=== PATIENT | male | born 1940 | race Caucasian/White ===

== ENCOUNTER → 2017-02-06 | Outpatient (CLI) | payer MEDICARE, BC ==
--- NOTE | 2017-02-07 11:35 | ECHOF ---
Referral Reason:R01.1 cardiac murmur MEASUREMENTS -------- HEIGHT: 177.8 cm WEIGHT: 88.5 kg BP: 117/55 LAESV Index (A-L): 15.68 ml/m MV E George: 1.31 m/s MV DecT: 474 ms MV A George: 1.85 m/s MV E/A Ratio: 0.71 AV maxP.26 mmHg AV meanP.76 mmHg RAP: 5.00 mmHg RVSP: 11.68 mmHg FINDINGS -------- Sinus rhythm. This was a technically difficult study with suboptimal views. Overall left ventricular systolic function is normal with, an EF between 55 - 60 %. The right ventricle is normal in size and function. Normal LA size by volume 22+/-6 ml/m2. The right atrium is normal in size. Aortic valve is trileaflet and is mildly thickened. There is no evidence of aortic regurgitation. Mild aortic stenosis with peak/mean pressure gradient of 20.26mmHg / 9.76mmHg , the aortic valve area by continuity equation is 1.8cm. The mitral valve leaflets are mildly thickened. Mild mitral annular calcification present. There is trace to mild mitral regurgitation. The peak and mean MV gradients are 16.14mmHg 5.85mmHg as measured by doppler. Mild mitral stenosis. Trace tricuspid regurgitation present. There is no evidence of pulmonary hypertension. The right ventricular systolic pressure, as measured by Doppler, is 11.68mmHg. The pulmonic valve was not well visualized. The aortic root size is normal. IVC Not well visulized. The pericardium is normal. There is no pericardial effusion. CONCLUSIONS -------- 1. Sinus rhythm. 2. The peak and mean MV gradients are 16.14mmHg 5.85mmHg as measured by doppler. 3. Mild mitral stenosis. 4. Trace tricuspid regurgitation present. 5. There is no evidence of pulmonary hypertension. 6. The right ventricular systolic pressure, as measured by Doppler, is 11.68mmHg. 7. The pulmonic valve was not well visualized. 8. The aortic root size is normal. 9. IVC Not well visulized. 10. There is no pericardial effusion. 11. This was a technically difficult study with suboptimal views. 12. Overall left ventricular systolic function is normal with, an EF between 55 - 60 %. 13. Normal LA size by volume 22+/-6 ml/m2. 14. Aortic valve is trileaflet and is mildly thickened. 15. Mild aortic stenosis with peak/mean pressure gradient of 20.26mmHg / 9.76mmHg , the aortic valve area by continuity equation is 1.8cm. 16. The mitral valve leaflets are mildly thickened. 17. Mild mitral annular calcification present. 18. There is trace to mild mitral regurgitation. SUPPLY OFFICER: Omar Mast RDCS
== END | disposition home or self-care (01) ==
LOC: RADECHMAIN 16:15
PROVIDERS: ATTEND Family Medicine
DX: I08.1 Rheumatic disorders of both mitral and tricuspid valves (principal)
CPT/HCPCS: 93306

== ENCOUNTER 2017-08-22 06:34 | Day surgery (SDC) | payer MEDICARE, BC ==
[2017-08-21 09:07] VITALS: BMI 28.7
[~2017-08-22 06:34] MED LIST: LACTATED RINGERS 1,000 ML IV SCH
[2017-08-22 07:10] VITALS: RESP 18; TEMP 98.2
[2017-08-22] MEDS ORDERED: LACTATED RINGERS 1,000 ML IV ONE (07:13)
[2017-08-22 07:29] LABS: Glucose,Whole Blood 153 mg/dL (75-99)
[2017-08-22] MEDS ORDERED: LIDOCAINE 1% INJ 10MG/ML (20 ML MDV) ONE (07:34)
[2017-08-22] MEDS ORDERED: PROPOFOL 10 MG/ML 20 ML VIAL IV ONE (07:34)
--- NOTE | 2017-08-22 08:20 | P.PCN ---
Date of Procedure: 08/22/17 Procedure(s) Performed: Patient is a 76 year-old schedule for flexible sigmoidoscopy as part of follow- up of large rectal polyp that was noted on a recent colonoscopy in 07/21/2017. Patient was being evaluated for iron deficiency anemia and a colonoscopy donerevealed multiple colon polyps. The largest was in the distal rectum measuring 4-5 cm in size which was partially removed by snare polypectomy. Biopsies revealed tubular villous adenoma. He scheduled for repeat flexible sigmoidoscopy with sigmoidoscopy to ensure complete polypectomy Preoperative diagnosis; follow-up large distal rectal polyp Procedure Flexible sigmoidoscopy with snare polypectomy, submucosal injection, argon plasma coagulation Anesthesia MAC Description of procedure: The patient was brought into the endoscopy unit IV conscious sedation was administered by anesthesia and continuous monitoring. Initial digital rectal examination was normal. The Olympus CF 160 video colonoscope was then inserted into the rectum and gradually advanced to the sigmoid colon. Careful examination was performed as the scope was gradually being withdrawn. The mucosa of the sigmoid colon appeared normal in the distal rectum there was a residual 3 cm broad-based polyp identified which was close to the dentate line. initially the submucosal injection was performed using a sclerotherapy needle and approximately 10 mL of normal saline was injected at the base of the polyp. Following this snare polypectomy was performed at most of the polyp was removed. However there was small fragments of flat polyp noted in the center of the polyp could not be removed by snare polypectomy. Hence argon plasma coaguation was used and the residual polyp was coagulated. Patient tolerated the procedure well. Impression: 3 cm broad-based distal rectal polyp status post submucosal injection with saline, snare polypectomy and argon plasma coag ligation as described above. Recommendations: findings of this examination were discussed with the patient as well as his family.Will await the biopsy results. Recommended repeat flexible sigmoidoscopy in 3 months based on the biopsy results.
[2017-08-22 08:31] VITALS: BP 146/57; PULSE 60
== END 2017-08-22 08:59 | disposition home or self-care (01) ==
LOC: ORWHC2ENDO 06:34
PROVIDERS: ATTEND Internal Medicine Gastroenterology
DX: Z12.11 Encounter for screening for malignant neoplasm of colon (principal); D12.8 Benign neoplasm of rectum; I10 Essential (primary) hypertension; E78.5 Hyperlipidemia, unspecified; Z95.2 Presence of prosthetic heart valve; Z95.1 Presence of aortocoronary bypass graft; I25.2 Old myocardial infarction; E11.9 Type 2 diabetes mellitus without complications; Z79.84 Long term (current) use of oral hypoglycemic drugs; N28.9 Disorder of kidney and ureter, unspecified; Z79.02 Long term (current) use of antithrombotics/antiplatelets; Z79.899 Other long term (current) drug therapy; Z88.5 Allergy status to narcotic agent
CPT/HCPCS: 88305; 45338; 45335; J2001; J2704; 45346

== ENCOUNTER → 2017-11-19 | Day surgery (SDC) | payer MEDICARE, BC ==
[2017-11-17 11:48] VITALS: BMI 30.4
[~2017-11-19] MED LIST changes: +LIDOCAINE 1% 20 ML VIAL (10MG/ML) FOR IV START INTRADERMA PRN; +LIDOCAINE 1% INJ 10MG/ML (20 ML MDV) ONE; +MIDAZOLAM 2 MG/2 ML VIAL IV PRN; +PROPOFOL 10 MG/ML 20 ML VIAL IV ONE
[2017-11-19 07:19] VITALS: TEMP 97.8
[2017-11-19 07:23] LABS: Glucose,Whole Blood 211 mg/dL (75-99)
--- NOTE | 2017-11-19 08:02 | P.PCN ---
Date of Procedure: 11/19/17 Procedure(s) Performed: BRIEF HISTORY: Patient is a 77-year-old pleasant male, scheduled for an elective flexible sigmoidoscopy as a part of fall follow-up of large rectal polyp that was diagnosed in July 2017. He was noted to have a 5 cm polyp in the distal rectum that was partially removed in July 2017 and biopsy showed tubular villous adenoma. Had a repeat sigmoidoscopy in August 2017 and there was a 3 cm residual polyp identified which was also removed by snare polypectomy and argon plasma coag ablation was performed. He scheduled for repeat surveillance flexible cystoscopy today. PROCEDURE PERFORMED: Flexible sigmoidoscopy with attempted snare polypectomy and hot biopsy PREOPERATIVE DIAGNOSIS: Follow-up large rectal polyp. IV sedation per Anesthesia. PROCEDURE: After informed consent was obtained, the patient, was brought into the endoscopy unit. IV sedation was administered by Anesthesia under continuous monitoring. Digital rectal examination was normal. Initially the Olympus CF- 160 flexible video colonoscope was then inserted in the rectum, gradually advanced into the splenic flexure. The prep was extremely poor. Most of the sigmoid colon and descending colon could not be adequately visualized. Preparation was performed in the rectum. The site of previous polypectomy was identified without any difficulty which was located in the distal rectum. There was a 5-6 cm residual flat polyp noted at the site of polypectomy with scar tissue. Initially attempts at removing the polyp using a snare but was not successful. Subsequently using a hot biopsy forceps and the polyp was completely removed. Retroflexion was performed in the rectum and no lesions were seen. The patient tolerated the procedure well. IMPRESSION: 5-6 mm residual rectal polyp in the distal rectum status post attempted snare polypectomy followed by hot biopsy and complete polypectomy was accomplished. RECOMMENDATIONS: Findings of this examination were discussed with the patient as well as his family. He was advised to follow with the biopsy results. He can have a repeat colonoscopy in one year..
[2017-11-19 08:03] VITALS: RESP 16
[2017-11-19 08:10] VITALS: BP 158/69; PULSE 72
[2017-11-19 08:13] LABS: Glucose,Whole Blood 191 mg/dL (75-99)
== END ==
LOC: ORWHC2ENDO 06:36
PROVIDERS: ATTEND Internal Medicine Gastroenterology
DX: Z12.11 Encounter for screening for malignant neoplasm of colon (principal); D37.5 Neoplasm of uncertain behavior of rectum; I25.10 Atherosclerotic heart disease of native coronary artery without angina pectoris; I10 Essential (primary) hypertension; Z87.891 Personal history of nicotine dependence; E78.5 Hyperlipidemia, unspecified; E11.9 Type 2 diabetes mellitus without complications; Z79.84 Long term (current) use of oral hypoglycemic drugs; Z95.1 Presence of aortocoronary bypass graft; Z79.02 Long term (current) use of antithrombotics/antiplatelets; Z79.82 Long term (current) use of aspirin; Z79.899 Other long term (current) drug therapy
CPT/HCPCS: 88305; 45333; J2001; J2704; 44392

== ENCOUNTER 2018-08-27 02:02 | Inpatient (IN) | payer MEDICARE, BC ==
--- NOTE | 2018-08-27 02:23 | ED ---
General Adult HPI - General Chief complaint: Recheck/Abnormal Lab/Rx Stated complaint: Lab Recheck Time Seen by Provider: 08/27/18 02:13 Source: patient, RN notes reviewed Mode of arrival: wheelchair Limitations: no limitations - History of Present Illness Initial comments: 77-year-old male presents emergency Department with chief complaint of low hemoglobin. Patient states that he woke up a few days ago states that he felt fatigued, dizzy short of breath. Patient states that he saw his PCP who to lab work. He was notified as hemoglobin was 5. He has no history of anemia though he states he has low iron states that he's had infusions and takes oral tablets at this time. Patient does take Plavix but denies any Coumadin or any other blood thinners. Patient denies chest pain, headache, fever, chills, abdominal pain. Patient does have normal by stool secondary to iron supplement. He has had multiple polyps removed by Dr. Lewis in the past. Denies any hematuria. - Related Data Home Medications Medication Instructions Recorded Confirmed Aspirin EC [Ecotrin Low Dose] 81 mg PO HS 07/28/15 08/27/18 Atorvastatin [Lipitor] 40 mg PO HS 07/28/15 08/27/18 Cinnamon Bark [Cinnamon] 1,000 mg PO BID 07/28/15 08/27/18 Calera-3 Fatty Acids/Fish Oil [Fish 1 cap PO BID 07/28/15 08/27/18 Oil 1,000 mg Softgel] glipiZIDE [Glucotrol] 10 mg PO AC-BRKFST 07/28/15 08/27/18 Allopurinol [Zyloprim] 100 mg PO QAM 11/13/15 08/27/18 amLODIPine [Norvasc] 2.5 mg PO DAILY 01/08/16 08/27/18 Cholecalciferol (Vitamin D3) 2,000 unit PO BID 02/25/17 08/27/18 [Vitamin D3] Carvedilol [Coreg] 6.25 mg PO BID 08/21/17 08/27/18 Ferrous Sulfate [Feosol] 130 mg PO DAILY 11/17/17 08/27/18 Acetaminophen Tab [Tylenol Tab] 325 mg PO Q6H PRN 08/27/18 08/27/18 Sennosides/Docusate Sodium 1 tab PO DAILY 08/27/18 08/27/18 [Senna-S Laxative Tablet] Sodium Bicarbonate Tab 2 tab PO BID 08/27/18 08/27/18 Sodium Polystyrene Sulfonate 15 g PO DAILY 08/27/18 08/27/18 [Kayexalate] glyBURIDE [Diabeta] 2.5 mg PO DAILY PRN 08/27/18 08/27/18 metFORMIN HCL ER [Glucophage Xr] 500 mg PO DAILY 08/27/18 08/27/18 sitaGLIPtin [Januvia] 50 mg PO DAILY 08/27/18 08/27/18 Previous Rx's Medication Instructions Recorded Clopidogrel [Plavix] 75 mg PO DAILY #90 tab 01/11/16 Allergies Allergy/AdvReac Type Severity Reaction Status Date / Time codeine Allergy Rash/Hives Verified 08/27/18 02:40 Review of Systems ROS Statement: Those systems with pertinent positive or pertinent negative responses have been documented in the HPI. ROS Other: All systems not noted in ROS Statement are negative. 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 cataract surgery-porfirio, AORTIC RESECTION FOR ANEURYSM. aortogram . RIGHT FOOT AMPUTATION , FLEXIBLE SIGMOIDOSCOPY 08/2017 Past Anesthesia/Blood Transfusion Reactions: No Reported Reaction Past Psychological History: Depression Smoking Status: Former smoker - Past Family History Mother Family Medical History: Cancer Father Additional Family Medical History / Comment(s): alzheimers Sister(s) Family Medical History: Cancer General Exam Limitations: no limitations General appearance: alert, in no apparent distress, other (appears pale) Head exam: Present: atraumatic, normocephalic, normal inspection Eye exam: Present: PERRL, EOMI. Absent: normal appearance (pale), scleral icterus, conjunctival injection, periorbital swelling ENT exam: Present: normal exam, normal oropharynx, mucous membranes moist Neck exam: Present: normal inspection. Absent: tenderness, meningismus, lymphadenopathy Respiratory exam: Present: normal lung sounds bilaterally. Absent: respiratory distress, wheezes, rales, rhonchi, stridor Cardiovascular Exam: Present: regular rate, normal rhythm, normal heart sounds. Absent: systolic murmur, diastolic murmur, rubs, gallop, clicks GI/Abdominal exam: Present: soft, normal bowel sounds. Absent: distended, tenderness, guarding, rebound, rigid Skin exam: Present: warm, dry, intact, normal color. Absent: rash Course Vital Signs 08/27/18 08/27/18 02:07 02:40 Temperature 98.1 F Pulse Rate 79 68 Respiratory 20 19 Rate Blood Pressure 81/49 102/72 O2 Sat by Pulse 96 99 Oximetry Medical Decision Making - Medical Decision Making 77-year-old male presented for low hemoglobin. Patient's hemoglobin is 5.8. 2 units of blood were ordered. Patient is Hemoccult positive. Patient was given Protonix. Patient will be admitted for evaluation by GI. - Lab Data Result diagrams: 08/27/18 02:15 08/27/18 02:15 Lab Results 08/27/18 08/27/18 08/27/18 Range/Units 02:15 02:15 02:15 WBC 7.4 (3.8-10.6) k/uL RBC 1.93 L (4.30-5.90) m/uL Hgb 5.8 L* (13.0-17.5) gm/dL Hct 17.5 L* (39.0-53.0) % MCV 90.6 (80.0-100.0) fL MCH 29.8 (25.0-35.0) pg MCHC 32.9 (31.0-37.0) g/dL RDW 21.1 H (11.5-15.5) % Plt Count 173 (150-450) k/uL Neutrophils % 69 % Lymphocytes % 18 % Monocytes % 7 % Eosinophils % 4 % Basophils % 1 % Neutrophils # 5.1 (1.3-7.7) k/uL Lymphocytes # 1.3 (1.0-4.8) k/uL Monocytes # 0.5 (0-1.0) k/uL Eosinophils # 0.3 (0-0.7) k/uL Basophils # 0.1 (0-0.2) k/uL Anisocytosis Moderate Macrocytosis Slight PT 10.1 (9.0-12.0) sec INR 0.9 (<1.2) APTT 18.4 L (22.0-30.0) sec Sodium 141 (137-145) mmol/L Potassium 4.2 (3.5-5.1) mmol/L Chloride 102 (98-107) mmol/L Carbon Dioxide 26 (22-30) mmol/L Anion Gap 13 mmol/L BUN 58 H (9-20) mg/dL Creatinine 1.98 H (0.66-1.25) mg/dL Est GFR (CKD-EPI)AfAm 37 (>60 ml/min/1.73 sqM) Est GFR (CKD-EPI)NonAf 32 (>60 ml/min/1.73 sqM) Glucose 224 H (74-99) mg/dL Calcium 10.3 H (8.4-10.2) mg/dL Total Bilirubin 0.3 (0.2-1.3) mg/dL AST 19 (17-59) U/L ALT 18 L (21-72) U/L Alkaline Phosphatase 65 (38-126) U/L Total Protein 6.1 L (6.3-8.2) g/dL Albumin 3.8 (3.5-5.0) g/dL Lipase 119 (23-300) U/L Urine Color Urine Appearance (Clear) Urine pH (5.0-8.0) Ur Specific [place] (1.001-1.035) Urine Protein (Negative) Urine Glucose (UA) (Negative) Urine Ketones (Negative) Urine Blood (Negative) Urine Nitrite (Negative) Urine Bilirubin (Negative) Urine Urobilinogen (<2.0) mg/dL Ur Leukocyte Esterase (Negative) Urine RBC (0-5) /hpf Urine WBC (0-5) /hpf Ur Squamous Epith Cells (0-4) /hpf Urine Mucus (None) /hpf Stool Occult Blood (Negative) 08/27/18 08/27/18 Range/Units 02:52 02:52 WBC (3.8-10.6) k/uL RBC (4.30-5.90) m/uL Hgb (13.0-17.5) gm/dL Hct (39.0-53.0) % MCV (80.0-100.0) fL MCH (25.0-35.0) pg MCHC (31.0-37.0) g/dL RDW (11.5-15.5) % Plt Count (150-450) k/uL Neutrophils % % Lymphocytes % % Monocytes % % Eosinophils % % Basophils % % Neutrophils # (1.3-7.7) k/uL Lymphocytes # (1.0-4.8) k/uL Monocytes # (0-1.0) k/uL Eosinophils # (0-0.7) k/uL Basophils # (0-0.2) k/uL Anisocytosis Macrocytosis PT (9.0-12.0) sec INR (<1.2) APTT (22.0-30.0) sec Sodium (137-145) mmol/L Potassium (3.5-5.1) mmol/L Chloride (98-107) mmol/L Carbon Dioxide (22-30) mmol/L Anion Gap mmol/L BUN (9-20) mg/dL Creatinine (0.66-1.25) mg/dL Est GFR (CKD-EPI)AfAm (>60 ml/min/1.73 sqM) Est GFR (CKD-EPI)NonAf (>60 ml/min/1.73 sqM) Glucose (74-99) mg/dL Calcium (8.4-10.2) mg/dL Total Bilirubin (0.2-1.3) mg/dL AST (17-59) U/L ALT (21-72) U/L Alkaline Phosphatase (38-126) U/L Total Protein (6.3-8.2) g/dL Albumin (3.5-5.0) g/dL Lipase (23-300) U/L Urine Color Yellow Urine Appearance Clear (Clear) Urine pH 6.0 (5.0-8.0) Ur Specific [place] 1.009 (1.001-1.035) Urine Protein Negative (Negative) Urine Glucose (UA) 4+ H (Negative) Urine Ketones Negative (Negative) Urine Blood Small H (Negative) Urine Nitrite Negative (Negative) Urine Bilirubin Negative (Negative) Urine Urobilinogen <2.0 (<2.0) mg/dL Ur Leukocyte Esterase Negative (Negative) Urine RBC <1 (0-5) /hpf Urine WBC 3 (0-5) /hpf Ur Squamous Epith Cells 1 (0-4) /hpf Urine Mucus Rare H (None) /hpf Stool Occult Blood Positive (Negative) Disposition Clinical Impression: Melena, Anemia, Chronic renal failure Disposition: ADMITTED IP TO THIS HOSP Condition: Fair Referrals: Norm Stock MD [Primary Care Provider] - 1-2 days
[2018-08-27 02:41] LABS: Anisocytosis Moderate; Basophils # (A) 0.1 k/uL (0-0.2); Basophils % (A) 1 %; Eosinophils # (A) 0.3 k/uL (0-0.7); Eosinophils % (A) 4 %; Lymphocytes # (A) 1.3 k/uL (1.0-4.8); Lymphocytes % (A) 18 %; MCH 29.8 pg (25.0-35.0); MCHC 32.9 g/dL (31.0-37.0); MCV 90.6 fL (80.0-100.0); Macrocytosis Slight; Mean Platelet Volume 8.2; Monocytes # (A) 0.5 k/uL (0-1.0); Monocytes % (A) 7 %; Neutrophils # (A) 5.1 k/uL (1.3-7.7); Neutrophils % (A) 69 %; Platelet Count 173 k/uL (150-450); RBC 1.93 m/uL (4.30-5.90); RDW 21.1 % (11.5-15.5)
[2018-08-27 02:47] LABS: Albumin 3.8 g/dL (3.5-5.0); Calcium 10.3 mg/dL (8.4-10.2); Potassium 4.2 mmol/L (3.5-5.1); Total Bilirubin 0.3 mg/dL (0.2-1.3); Total Protein 6.1 g/dL (6.3-8.2)
[2018-08-27 02:50] LABS: HCT 17.5 % (39.0-53.0); HGB 5.8 gm/dL (13.0-17.5)
[2018-08-27] MEDS ORDERED: SODIUM CHLORIDE 0.9% 1,000 ML IV ONE (02:51)
[2018-08-27 02:52] LABS: INR 0.9 (<1.2); Prothrombin Time 10.1 sec (9.0-12.0)
[2018-08-27 02:58] LABS: Partial Thromboplastin Time 18.4 sec (22.0-30.0)
[2018-08-27 03:16] LABS: Mucus,Urine Rare /hpf; RBC,Urine <1 /hpf (0-5); Squamous Epithelial Cell,Urine 1 /hpf (0-4); WBC,Urine 3 /hpf (0-5)
[2018-08-27 03:18] LABS: Appearance,Urine Clear (Clear); Color,Urine Yellow; Glucose,Urine (UA) 4+ (Negative); Protein,Urine Negative (Negative); Specific Gravity,Urine 1.009 (1.001-1.035)
[2018-08-27 03:19] LABS: Bilirubin,Urine Negative (Negative); Blood,Urine Small (Negative); Ketones,Urine Negative (Negative); Leukocyte Esterase,Urine Negative (Negative); Nitrite,Urine Negative (Negative); Urobilinogen,Urine <2.0 mg/dL (<2.0)
[2018-08-27] MEDS ORDERED: PANTOPRAZOLE 40 MG/10 ML VIAL IVP STA (03:25)
[2018-08-27] MEDS ORDERED: ACETAMINOPHEN TAB 325 MG TAB PO PRN ×2 (03:26→10:41)
[2018-08-27 05:51] LABS: Glucose,Whole Blood 158 mg/dL (75-99)
[2018-08-27 09:43] LABS: Anisocytosis Slight; Basophils % (A) 0 %; Eosinophils # (A) 0.2 k/uL (0-0.7); Eosinophils % (A) 4 %; HCT 22.7 % (39.0-53.0); HGB 7.2 gm/dL (13.0-17.5); Lymphocytes # (A) 1.3 k/uL (1.0-4.8); Lymphocytes % (A) 21 %; MCH 29.3 pg (25.0-35.0); MCHC 31.7 g/dL (31.0-37.0); MCV 92.3 fL (80.0-100.0); Mean Platelet Volume 8.8; Monocytes # (A) 0.4 k/uL (0-1.0); Monocytes % (A) 7 %; Neutrophils # (A) 3.9 k/uL (1.3-7.7); Neutrophils % (A) 66 %; Platelet Count 126 k/uL (150-450); RBC 2.45 m/uL (4.30-5.90); RDW 18.4 % (11.5-15.5); WBC 5.9 k/uL (3.8-10.6)
[2018-08-27 10:11] LABS: Potassium 4.2 mmol/L (3.5-5.1)
[2018-08-27] MEDS ORDERED: NALOXONE 0.4 MG/ML 1 ML VIAL IV PRN (10:24)
[2018-08-27] MEDS ORDERED: ONDANSETRON 4 MG/2 ML VIAL IVP PRN (10:24)
[2018-08-27 10:40] LABS: Reticulocyte % 5.5 % (0.5-2.0)
--- NOTE | 2018-08-27 10:44 | P.HPIM ---
History of Present Illness H&P Date: 08/27/18 Chief Complaint: weakness Patient is a 77-year-old male past medical history of hypertension, dyslipidemia, diabetes mellitus type 2, and atherosclerotic sclerotic coronary artery disease status post CABG with AVR replacement who presented at the direction of Dr. Stock for low hemoglobin. Patient had initially seen Dr. Stock in the office on 08/26 and underwent blood work. He was called in the middle the night stating that he was anemic and told to come to the ER. On presentation to the ER here he underwent an extensive evaluation. His hemoglobin was found to be 5.8. His creatinine was slightly elevated but at his baseline. Vital signs were within normal limits. He was ordered 2 units of packed red blood cells and admitted to the general medical floor. He had a positive stool occult blood to take oral iron at home. Patient seen and examined at bedside. He states the last 3 days he felt dizzy on standing with shortness of breath with exertion. He has felt overall weak. He denies any overt chest pain and shortness of breath resolved when he sits down. He denies any abdominal pain nausea, vomiting, diarrhea, or constipation. He has chronic dark stools from his iron therapy which he states are unchanged. He denies seeing any blood in his stool. He has a history of rectal polyps and underwent sigmoidoscopy last year with Dr. Lewis. Follow with her in one year which is coming up in several months. He denies any history of colon cancer. He states he has never had anything like this prior. He takes aspirin and Plavix at baseline but no anticoagulation. He denies any recent cough, cold, fever, flu, numbness, tingling, changes in vision. He is taking casodex. Recent changes in medication were trial of what he believes is Januvia and thought he didn't tolerate the medication was taken off of it by Dr. Stock. Review of Systems Pertinent positives and negatives as discussed in HPI, a complete review of systems was performed and all other systems are negative. Past Medical History Past Medical History: Cancer, Diabetes Mellitus, Hearing Disorder / Deafness, Hyperlipidemia, Hypertension, Myocardial Infarction ([place]), Prostate Disorder, Renal Disease, Vascular Disorder Additional Past Medical History / Comment(s): gout, NEUROPATHY, constipation, chronic kidney disease, AORTIC VALVE WAS REPLACED, PROSTATE CANCER-radiation only no chemo. 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 cataract surgery-porfirio, AORTIC RESECTION FOR ANEURYSM. aortogram . FLEXIBLE SIGMOIDOSCOPY 08/2017 Past Anesthesia/Blood Transfusion Reactions: No Reported Reaction Past Psychological History: Depression Smoking Status: Former smoker Past Alcohol Use History: Rare Additional Past Alcohol Use History / Comment(s): QUIT SMOKING IN 2008, SMOKED 1PPD FROM 1957 Past Drug Use History: None Reported Additional History: Lives at home with his . He typically uses a cane but sometimes uses a walker. He Is retired. - Past Family History Mother Family Medical History: Cancer Additional Family Medical History / Comment(s): cancer- unknow type. Denies family hx of colon caner Father Additional Family Medical History / Comment(s): alzheimers Sister(s) Family Medical History: Cancer Medications and Allergies Home Medications Medication Instructions Recorded Confirmed Type Aspirin EC [Ecotrin Low Dose] 81 mg PO HS 07/28/15 08/27/18 History Atorvastatin [Lipitor] 40 mg PO HS 07/28/15 08/27/18 History glipiZIDE [Glucotrol] 5 mg PO AC-BRKFST 07/28/15 08/27/18 History Allopurinol [Zyloprim] 100 mg PO DAILY 11/13/15 08/27/18 History amLODIPine [Norvasc] 2.5 mg PO DAILY 01/08/16 08/27/18 History Clopidogrel [Plavix] 75 mg PO DAILY #90 tab 01/11/16 08/27/18 Rx Acetaminophen Tab [Tylenol Tab] 325 mg PO Q6H PRN 08/27/18 08/27/18 History Bicalutamide 50 mg PO DAILY 08/27/18 08/27/18 History Sodium Bicarbonate Tab 1,300 tab PO BID 08/27/18 08/27/18 History glyBURIDE [Diabeta] 2.5 mg PO QID PRN 08/27/18 08/27/18 History metFORMIN HCL ER [Glucophage Xr] 500 mg PO DAILY 08/27/18 08/27/18 History sitaGLIPtin [Januvia] 50 mg PO DAILY 08/27/18 08/27/18 History Allergies Allergy/AdvReac Type Severity Reaction Status Date / Time codeine Allergy Rash/Hives Verified 08/27/18 09:43 Physical Exam Osteopathic Statement: *. No significant issues noted on an osteopathic structural exam other than those noted in the History and Physical/Consult. Vitals: Vital Signs Temp Pulse Pulse Resp BP BP Pulse Ox 08/27/18 08:13 98.0 F 65 16 134/68 94 L 08/27/18 08:11 98.0 F 65 16 134/68 93 L 08/27/18 07:46 98.3 F 64 15 134/64 96 08/27/18 06:47 73 08/27/18 06:42 98.3 F 65 16 123/57 97 08/27/18 06:12 98.4 F 66 15 124/67 95 08/27/18 06:02 97.8 F 94 16 111/60 96 08/27/18 05:38 98.1 F 71 15 116/54 98 08/27/18 05:34 98.1 F 71 15 116/54 98 08/27/18 05:07 97.8 F 73 18 133/60 99 08/27/18 04:52 98.5 F 67 17 129/65 100 08/27/18 04:37 98.7 F 70 17 113/58 99 08/27/18 04:10 98.7 F 68 17 121/60 100 08/27/18 04:00 98.0 F 68 18 116/60 08/27/18 03:42 68 18 107/58 100 08/27/18 02:40 68 19 102/72 99 08/27/18 02:07 98.1 F 79 20 81/49 96 Intake and Output 08/26/18 08/27/18 08/27/18 22:59 06:59 14:59 Intake Total 310 310 Balance 310 310 Intake: Blood Product 310 310 Rc As-1 Unit 0 310 [id number] Rc Pheresis As-3 Unit 310 [id number] Other: Voiding Method Toilet Urinal # Voids 1 1 Weight 93.44 kg General: non toxic, mild distress, appears at stated age, normal weight Derm: Pale appearing, no unusual rashes/lesions no unusual ecchymoses, warm, dry Head: atraumatic, normocephalic, symmetric Eyes: EOMI, no lid lag, anicteric sclera, pupils equal round reactive to light ENT: Nose and ears atraumatic, no thrush, no pharyngeal erythema Neck: No thyromegaly, no cervical lymphadenopathy, trachea midline, supple Mouth: no lip lesion, mucus membranes moist Cardiovascular: S1S2 reg, no murmur, positive posterior tibial pulse LLE , no edema, capillary refill less than 2 seconds Lungs: CTA bilateral, no rhonchi, no rales , no accessory muscle use Abdominal: soft, nontender to palpation, no guarding, no appreciable organomegaly, normal bowel sounds Ext: Right BKA, Left left toe amputation, no gross muscle atrophy, muscle strength 5 out of 5 in all 4 extremities grossly, no contractures, Neuro: CN II-XI grossly intact, light touch intact all 4 extremities, finger to nose within normal limits, Psych: Alert, oriented, appropriate affect Results CBC & Chem 7: 08/27/18 09:13 08/27/18 09:13 Labs: Abnormal Lab Results - Last 24 Hours (Table) 08/27/18 08/27/18 08/27/18 Range/Units 02:15 02:15 02:15 RBC 1.93 L (4.30-5.90) m/uL Hgb 5.8 L* (13.0-17.5) gm/dL Hct 17.5 L* (39.0-53.0) % RDW 21.1 H (11.5-15.5) % Plt Count (150-450) k/uL APTT (22.0-30.0) sec Chloride (98-107) mmol/L BUN 58 H (9-20) mg/dL Creatinine 1.98 H (0.66-1.25) mg/dL Glucose 224 H (74-99) mg/dL POC Glucose (mg/dL) (75-99) mg/dL Calcium 10.3 H (8.4-10.2) mg/dL ALT 18 L (21-72) U/L Total Protein 6.1 L (6.3-8.2) g/dL Urine Glucose (UA) (Negative) Urine Blood (Negative) Urine Mucus (None) /hpf Crossmatch See Detail 08/27/18 08/27/18 08/27/18 Range/Units 02:15 02:52 05:47 RBC (4.30-5.90) m/uL Hgb (13.0-17.5) gm/dL Hct (39.0-53.0) % RDW (11.5-15.5) % Plt Count (150-450) k/uL APTT 18.4 L (22.0-30.0) sec Chloride (98-107) mmol/L BUN (9-20) mg/dL Creatinine (0.66-1.25) mg/dL Glucose (74-99) mg/dL POC Glucose (mg/dL) 158 H (75-99) mg/dL Calcium (8.4-10.2) mg/dL ALT (21-72) U/L Total Protein (6.3-8.2) g/dL Urine Glucose (UA) 4+ H (Negative) Urine Blood Small H (Negative) Urine Mucus Rare H (None) /hpf Crossmatch 08/27/18 08/27/18 Range/Units 09:13 09:13 RBC 2.45 L (4.30-5.90) m/uL Hgb 7.2 L (13.0-17.5) gm/dL Hct 22.7 L (39.0-53.0) % RDW 18.4 H (11.5-15.5) % Plt Count 126 L (150-450) k/uL APTT (22.0-30.0) sec Chloride 108 H (98-107) mmol/L BUN 48 H (9-20) mg/dL Creatinine 1.90 H (0.66-1.25) mg/dL Glucose 137 H (74-99) mg/dL POC Glucose (mg/dL) (75-99) mg/dL Calcium (8.4-10.2) mg/dL ALT (21-72) U/L Total Protein (6.3-8.2) g/dL Urine Glucose (UA) (Negative) Urine Blood (Negative) Urine Mucus (None) /hpf Crossmatch Thrombosis Risk Factor Assmnt - DVT/VTE Prophylaxis DVT/VTE Prophylaxis: Low risk, early ambulation encouraged - Choose All That Apply Any of the Below Risk Factors Present?: Yes Each Factor Represents 1 point: Abnormal pulmonary function (COPD), Obesity ( BMI >25) Each Risk Factor Represents 3 Points: Age 75 years or older Other congenital or acquired thrombophilia - If yes, enter type in comment: No Thrombosis Risk Factor Assessment Total Risk Factor Score: 5 Thrombosis Risk Factor Assessment Level: High Risk Assessment and Plan Assessment: Symptomatic anemia -Serial CBCs -Status post 2 units of packed red blood cells -GI consultation, positive fecal occult blood likely due to chronic oral iron therapy -Add iron studies, reticulocyte count 2 blood before transfusion -We will check echocardiogram to look for anemia secondary to aortic stenosis -Hold aspirin and Plavix Thrombocytopenia -Was not present on admission -We will repeat with next CBC -Check haptoglobin and LDH CKD stage III -Creatinine appears at baseline of 1.6-1.8 -Avoid additional nephrotoxic agents -Follow BMP -Continue home bicarb Diabetes mellitus type 2, controlled with oral medications -Insulin sliding scale -Follow blood sugars -Check hemoglobin A1c -Hold oral medications Hypertension, controlled -Continue with Norvasc Dyslipidemia -Hold statin therapy in light of possible bleeding The patient is admitted with an anticipated greater than 2 midnight stay for evaluation of symptomatic anemia. Surrogate decision-maker: Apple CODE STATUS: Full DVT prophylaxis: SCDs due to bleeding risk Discussed with: Patient, nursing Anticipated discharge date: 2-[address]: Home A total of 55 minutes was spent on the care of this complex patient more than 50 % of the time was spent in counseling and care coordination.
[2018-08-27 10:56] LABS: Total Bilirubin 0.4 mg/dL (0.2-1.3)
[2018-08-27] MEDS: SODIUM CHLORIDE 0.9% 1,000 ML IV SCH ×2 (12:04→20:18)
[2018-08-27 12:14] LABS: Glucose,Whole Blood 148 mg/dL (75-99)
[2018-08-27] MEDS: INSULIN ASPART (NovoLOG) 100 UNIT/ML VIAL SQ SCH ×3 (12:16→20:18)
[2018-08-27 16:21] LABS: WBC 7.4 k/uL (3.8-10.6)
[2018-08-27 16:21] LABS: Iron Saturation 16.62 (15.00-50.00)
[2018-08-27 16:38] LABS: Anisocytosis Slight; Basophils % (A) 1 %; Eosinophils # (A) 0.3 k/uL (0-0.7); Eosinophils % (A) 4 %; HCT 23.5 % (39.0-53.0); HGB 7.6 gm/dL (13.0-17.5); Hypochromasia Slight; Lymphocytes # (A) 1.1 k/uL (1.0-4.8); Lymphocytes % (A) 17 %; MCHC 32.3 g/dL (31.0-37.0); Macrocytosis Slight; Mean Platelet Volume 8.8; Monocytes # (A) 0.4 k/uL (0-1.0); Monocytes % (A) 7 %; Neutrophils # (A) 4.4 k/uL (1.3-7.7); Neutrophils % (A) 70 %; Platelet Count 132 k/uL (150-450); RBC 2.53 m/uL (4.30-5.90); RDW 18.8 % (11.5-15.5); WBC 6.3 k/uL (3.8-10.6)
[2018-08-27 17:40] LABS: Glucose,Whole Blood 172 mg/dL (75-99)
[2018-08-27 20:18] LABS: Glucose,Whole Blood 169 mg/dL (75-99)
[2018-08-27] MEDS: PANTOPRAZOLE 40 MG/10 ML VIAL IVP SCH (20:43)
[2018-08-27] MEDS: SODIUM BICARBONATE TAB 650 MG TAB PO SCH (20:43)
[2018-08-27 22:46] LABS: Hemoglobin A1C 6.4 % (4.0-6.0)
[2018-08-28 01:00] LABS: Anisocytosis Slight; Basophils % (A) 0 %; Eosinophils # (A) 0.3 k/uL (0-0.7); Eosinophils % (A) 5 %; HCT 24.6 % (39.0-53.0); HGB 8.3 gm/dL (13.0-17.5); Hypochromasia Slight; Lymphocytes % (A) 15 %; MCHC 33.6 g/dL (31.0-37.0); MCV 92.2 fL (80.0-100.0); Macrocytosis Slight; Mean Platelet Volume 8.2; Monocytes # (A) 0.6 k/uL (0-1.0); Monocytes % (A) 8 %; Neutrophils # (A) 4.6 k/uL (1.3-7.7); Neutrophils % (A) 70 %; Platelet Count 138 k/uL (150-450); RBC 2.67 m/uL (4.30-5.90); RDW 19.2 % (11.5-15.5); WBC 6.6 k/uL (3.8-10.6)
[2018-08-28] MEDS: SODIUM CHLORIDE 0.9% 1,000 ML IV SCH ×3 (04:23→16:04)
--- NOTE | 2018-08-28 05:54 | P.CONS ---
History of Present Illness - Reason for Consult Consult date: 08/27/18 Anemia Requesting physician: Elvie Avina - Chief Complaint Anemia - History of Present Illness 77-year-old male with a medical history significant for hypertension, hyperlipidemia, type 2 diabetes mellitus and coronary artery disease status post CABG who presented for outpatient evaluation of abnormal labs. The patient had routine outpatient labs which were significant for a hemoglobin of 5.8. The patient has also been complaining of dizziness, weakness and shortness of breath worse with exertion. He is on Plavix and aspirin at baseline. The patient does report dark bowel movements and denies any gross red blood per rectum. On presentation to the hospital the patient was found to have a hemoglobin which improved from 5.8-7.2 and stool testing was positive for occult blood. He's undergone extensive endoscopic evaluation in the past with EGD and colonoscopy in 07/2017 at which time multiple polyps were removed and the patient was found to have a large rectal polyp. The rectal vault was subsequently treated with resection on follow-up flexible sigmoidoscopy in 2017 and 11/2017. Review of Systems REVIEW OF SYSTEMS: CONSTITUTIONAL: Denies any fevers, chills, weight change but he does report fatigue. CARDIOVASCULAR: Denies any chest pain, palpitations high or low blood pressures RESPIRATORY: Denies any hemoptysis or cough, but does report shortness of breath worse on exertion. GENITOURINARY: No dysuria or hematuria. MUSCULOSKELETAL: No weakness reported. SKIN: Denies any new rashes or lesions, jaundice or pallor. PSYCHIATRIC: Denies any depression or anxiety. NEUROLOGY: Denies headache, denies any new focal deficits, but does report dizziness. EARS/NOSE/THROAT: No recent hearing change, congestion, nasal discharge or sore throat. EYES: No pain in eyes, discharge or change in vision. GASTROINTESTINAL: As per HPI. Past Medical History Past Medical History: Cancer, Diabetes Mellitus, Hearing Disorder / Deafness, Hyperlipidemia, Hypertension, Myocardial Infarction ([place]), Prostate Disorder, Renal Disease, Vascular Disorder Additional Past Medical History / Comment(s): gout, NEUROPATHY, constipation, chronic kidney disease, AORTIC VALVE WAS REPLACED, PROSTATE CANCER-radiation only no chemo. 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 cataract surgery-porfirio, AORTIC RESECTION FOR ANEURYSM. aortogram . FLEXIBLE SIGMOIDOSCOPY 08/2017 Past Anesthesia/Blood Transfusion Reactions: No Reported Reaction Past Psychological History: Depression Smoking Status: Former smoker Past Alcohol Use History: Rare Additional Past Alcohol Use History / Comment(s): QUIT SMOKING IN 2008, SMOKED 1PPD FROM 1957 Past Drug Use History: None Reported - Past Family History Mother Family Medical History: Cancer Additional Family Medical History / Comment(s): cancer- unknow type. Denies family hx of colon caner Father Additional Family Medical History / Comment(s): alzheimers Sister(s) Family Medical History: Cancer Medications and Allergies Home Medications Medication Instructions Recorded Confirmed Type Aspirin EC [Ecotrin Low Dose] 81 mg PO HS 07/28/15 08/27/18 History Atorvastatin [Lipitor] 40 mg PO HS 07/28/15 08/27/18 History glipiZIDE [Glucotrol] 5 mg PO AC-BRKFST 07/28/15 08/27/18 History Allopurinol [Zyloprim] 100 mg PO DAILY 11/13/15 08/27/18 History amLODIPine [Norvasc] 2.5 mg PO DAILY 01/08/16 08/27/18 History Clopidogrel [Plavix] 75 mg PO DAILY #90 tab 01/11/16 08/27/18 Rx Acetaminophen Tab [Tylenol Tab] 325 mg PO Q6H PRN 08/27/18 08/27/18 History Bicalutamide 50 mg PO DAILY 08/27/18 08/27/18 History Sodium Bicarbonate Tab 1,300 tab PO BID 08/27/18 08/27/18 History glyBURIDE [Diabeta] 2.5 mg PO QID PRN 08/27/18 08/27/18 History metFORMIN HCL ER [Glucophage Xr] 500 mg PO DAILY 08/27/18 08/27/18 History sitaGLIPtin [Januvia] 50 mg PO DAILY 08/27/18 08/27/18 History Allergies Allergy/AdvReac Type Severity Reaction Status Date / Time codeine Allergy Rash/Hives Verified 08/27/18 09:43 Physical Exam Vitals: Vital Signs Temp Pulse Pulse Resp BP BP Pulse Ox 08/27/18 20:00 16 08/27/18 19:42 98.3 F 65 16 116/54 91 L 08/27/18 16:57 62 08/27/18 16:00 97.3 F L 62 16 96/40 93 L 08/27/18 12:00 98.3 F 62 17 107/52 95 08/27/18 10:43 64 15 08/27/18 08:13 98.0 F 65 16 134/68 94 L 08/27/18 08:11 98.0 F 65 16 134/68 93 L 08/27/18 07:46 98.3 F 64 15 134/64 96 08/27/18 06:47 73 08/27/18 06:42 98.3 F 65 16 123/57 97 08/27/18 06:12 98.4 F 66 15 124/67 95 08/27/18 06:02 97.8 F 94 16 111/60 96 08/27/18 05:38 98.1 F 71 15 116/54 98 08/27/18 05:34 98.1 F 71 15 116/54 98 08/27/18 05:07 97.8 F 73 18 133/60 99 08/27/18 04:52 98.5 F 67 17 129/65 100 08/27/18 04:37 98.7 F 70 17 113/58 99 08/27/18 04:10 98.7 F 68 17 121/60 100 08/27/18 04:00 98.0 F 68 18 116/60 08/27/18 03:42 68 18 107/58 100 08/27/18 02:40 68 19 102/72 99 08/27/18 02:07 98.1 F 79 20 81/49 96 Intake and Output 08/27/18 08/27/18 08/27/18 06:59 14:59 22:59 Intake Total 310 310 Balance 310 310 Intake: Blood Product 310 310 Rc As-1 Unit 0 310 [id number] Rc Pheresis As-3 Unit 310 [id number] Other: Voiding Method Toilet Toilet Toilet Urinal Urinal Urinal # Voids 1 1 # Bowel Movements 0 Weight 93.44 kg On physical examination, patient appears comfortable in no apparent distress. HEAD: Normocephalic, atraumatic. EYES: No scleral icterus. No conjunctival injection. MOUTH: No lesions, tongue midline. NECK: Trachea midline, no gross abnormalities. CHEST: Decreased air entry in all lung colón. HEART: S1-S2 appreciated. ABDOMEN: Soft, obese. Bowel sounds are positive. No organomegaly. No guarding or rigidity. EXTREMITIES: No pedal edema, patient does have a prosthesis. SKIN: No rashes, no jaundice. NEUROLOGIC: Alert and oriented x3. No focal deficits. Results CBC & Chem 7: 08/28/18 00:53 08/27/18 09:13 Labs: Abnormal Lab Results - Last 24 Hours (Table) 08/27/18 08/27/18 08/27/18 Range/Units 02:15 02:15 02:15 RBC 1.93 L (4.30-5.90) m/uL Hgb 5.8 L* (13.0-17.5) gm/dL Hct 17.5 L* (39.0-53.0) % RDW 21.1 H (11.5-15.5) % Plt Count (150-450) k/uL Retic Count (0.5-2.0) % APTT (22.0-30.0) sec Chloride (98-107) mmol/L BUN 58 H (9-20) mg/dL Creatinine 1.98 H (0.66-1.25) mg/dL Glucose 224 H (74-99) mg/dL POC Glucose (mg/dL) (75-99) mg/dL Calcium 10.3 H (8.4-10.2) mg/dL Iron (65-175) ug/dL ALT 18 L (21-72) U/L Total Protein 6.1 L (6.3-8.2) g/dL Urine Glucose (UA) (Negative) Urine Blood (Negative) Urine Mucus (None) /hpf Crossmatch See Detail 08/27/18 08/27/18 08/27/18 Range/Units 02:15 02:52 05:47 RBC (4.30-5.90) m/uL Hgb (13.0-17.5) gm/dL Hct (39.0-53.0) % RDW (11.5-15.5) % Plt Count (150-450) k/uL Retic Count (0.5-2.0) % APTT 18.4 L (22.0-30.0) sec Chloride (98-107) mmol/L BUN (9-20) mg/dL Creatinine (0.66-1.25) mg/dL Glucose (74-99) mg/dL POC Glucose (mg/dL) 158 H (75-99) mg/dL Calcium (8.4-10.2) mg/dL Iron (65-175) ug/dL ALT (21-72) U/L Total Protein (6.3-8.2) g/dL Urine Glucose (UA) 4+ H (Negative) Urine Blood Small H (Negative) Urine Mucus Rare H (None) /hpf Crossmatch 08/27/18 08/27/18 08/27/18 Range/Units 09:13 09:13 09:13 RBC 2.45 L (4.30-5.90) m/uL Hgb 7.2 L (13.0-17.5) gm/dL Hct 22.7 L (39.0-53.0) % RDW 18.4 H (11.5-15.5) % Plt Count 126 L (150-450) k/uL Retic Count 5.5 H (0.5-2.0) % APTT (22.0-30.0) sec Chloride 108 H (98-107) mmol/L BUN 48 H (9-20) mg/dL Creatinine 1.90 H (0.66-1.25) mg/dL Glucose 137 H (74-99) mg/dL POC Glucose (mg/dL) (75-99) mg/dL Calcium (8.4-10.2) mg/dL Iron (65-175) ug/dL ALT (21-72) U/L Total Protein (6.3-8.2) g/dL Urine Glucose (UA) (Negative) Urine Blood (Negative) Urine Mucus (None) /hpf Crossmatch 08/27/18 08/27/18 08/27/18 Range/Units 09:13 12:12 15:30 RBC 2.53 L (4.30-5.90) m/uL Hgb 7.6 L (13.0-17.5) gm/dL Hct 23.5 L (39.0-53.0) % RDW 18.8 H (11.5-15.5) % Plt Count 132 L (150-450) k/uL Retic Count (0.5-2.0) % APTT (22.0-30.0) sec Chloride (98-107) mmol/L BUN (9-20) mg/dL Creatinine (0.66-1.25) mg/dL Glucose (74-99) mg/dL POC Glucose (mg/dL) 148 H (75-99) mg/dL Calcium (8.4-10.2) mg/dL Iron 55 L (65-175) ug/dL ALT (21-72) U/L Total Protein (6.3-8.2) g/dL Urine Glucose (UA) (Negative) Urine Blood (Negative) Urine Mucus (None) /hpf Crossmatch 08/27/18 08/27/18 Range/Units 16:59 20:13 RBC (4.30-5.90) m/uL Hgb (13.0-17.5) gm/dL Hct (39.0-53.0) % RDW (11.5-15.5) % Plt Count (150-450) k/uL Retic Count (0.5-2.0) % APTT (22.0-30.0) sec Chloride (98-107) mmol/L BUN (9-20) mg/dL Creatinine (0.66-1.25) mg/dL Glucose (74-99) mg/dL POC Glucose (mg/dL) 172 H 169 H (75-99) mg/dL Calcium (8.4-10.2) mg/dL Iron (65-175) ug/dL ALT (21-72) U/L Total Protein (6.3-8.2) g/dL Urine Glucose (UA) (Negative) Urine Blood (Negative) Urine Mucus (None) /hpf Crossmatch Assessment and Plan (1) Melena Narrative/Plan: Patient presenting to the hospital with reports of intermittent melena and anemia believed to be secondary to blood loss with stool testing positive for occult blood. He has undergone extensive endoscopic evaluation with EGD and colonoscopy in 07/2017 and follow-up flexible sigmoidoscopy for treatment of a large rectal polyp in 09/2017 and 11/2017. Current Visit: Yes Status: Acute Code(s): K92.1 - MELENA SNOMED Code(s): 9659974 (2) Anemia due to blood loss Current Visit: Yes Status: Acute Code(s): D50.0 - IRON DEFICIENCY ANEMIA SECONDARY TO BLOOD LOSS (CHRONIC) SNOMED Code(s): 896410059 Plan: Supportive care Nothing by mouth after midnight Monitor hemoglobin and transfuse as needed Monitor for evidence of GI bleeding Continue Protonix twice daily Plan on upper endoscopy for evaluation of GI bleeding in the setting of melena and stool which was positive for occult blood Previous endoscopy reports reviewed Thank you for allowing us to participate in the care of the patient we will continue to follow
[2018-08-28] MEDS: INSULIN ASPART (NovoLOG) 100 UNIT/ML VIAL SQ SCH ×3 (06:07→17:27)
[2018-08-28 06:10] LABS: Glucose,Whole Blood 150 mg/dL (75-99)
[2018-08-28 06:14] LABS: Anisocytosis Slight; Basophils % (A) 0 %; Eosinophils # (A) 0.3 k/uL (0-0.7); Eosinophils % (A) 5 %; HCT 22.4 % (39.0-53.0); HGB 7.4 gm/dL (13.0-17.5); Hypochromasia Slight; Lymphocytes # (A) 0.7 k/uL (1.0-4.8); Lymphocytes % (A) 14 %; MCH 30.8 pg (25.0-35.0); MCHC 33.2 g/dL (31.0-37.0); MCV 92.8 fL (80.0-100.0); Macrocytosis Slight; Mean Platelet Volume 7.9; Monocytes # (A) 0.4 k/uL (0-1.0); Monocytes % (A) 7 %; Neutrophils # (A) 3.7 k/uL (1.3-7.7); Neutrophils % (A) 73 %; Platelet Count 130 k/uL (150-450); RBC 2.42 m/uL (4.30-5.90); RDW 19.5 % (11.5-15.5); WBC 5.1 k/uL (3.8-10.6)
[2018-08-28 06:24] LABS: Calcium 8.9 mg/dL (8.4-10.2); Potassium 4.2 mmol/L (3.5-5.1)
[2018-08-28] MEDS: PANTOPRAZOLE 40 MG/10 ML VIAL IVP SCH (07:46)
[2018-08-28] MEDS ORDERED: ALLOPURINOL 100 MG TAB PO SCH (09:00)
[2018-08-28] MEDS ORDERED: amLODIPine 2.5 MG TAB PO SCH (09:00)
[2018-08-28] MEDS: SODIUM BICARBONATE TAB 650 MG TAB PO SCH (09:17)
--- NOTE | 2018-08-28 11:05 | ECHOF ---
Referral Reason:aortic valve replacement, CHF MEASUREMENTS -------- HEIGHT: 177.8 cm WEIGHT: 93.4 kg BP: 134/64 RVIDd: 3.6 cm (< 3.3) IVSd: 1.4 cm (0.6 - 1.1) LVIDd: 3.6 cm (3.9 - 5.3) LVPWd: 1.4 cm (0.6 - 1.1) IVSs: 1.9 cm LVIDs: 3.7 cm LVPWs: 1.5 cm LA Diam: 4.0 cm (2.7 - 3.8) LAESV Index (A-L): 36.54 ml/m Ao Diam: 3.6 cm (2.0 - 3.7) MV EXCURSION: 5.206 mm (> 18.000) MV EF SLOPE: 15 mm/s (70 - 150) EPSS: 0.5 cm MV E George: 1.84 m/s MV DecT: 346 ms MV A George: 1.91 m/s MV E/A Ratio: 0.96 AV maxP.36 mmHg AV meanP.45 mmHg RAP: 5.00 mmHg RVSP: 39.25 mmHg FINDINGS -------- Sinus rhythm. This was a technically difficult study with suboptimal views. The left ventricular size is normal. There is moderate concentric left ventricular hypertrophy. O verall left ventricular systolic function is normal with, an EF between 65 - 70 %. The right ventricle is mildly enlarged. LA is moderately dilated 34-39 ml/m2 The right atrium is normal in size. 3 ml of Lumason was utilized for enhancement of images. Peak/mean gradient across the Aortic Valve is 15.36mmHg / 7.45mmHg. Normally functioning bioprosthe tic valve. The mitral valve leaflets are mildly thickened. Mild mitral annular calcification present. Mild m itral regurgitation is present. The peak and mean MV gradients are 15.83mmHg 6.15mmHg as measured by doppler. Moderate mitral stenosis. Mild tricuspid regurgitation present. There is mild pulmonary hypertension. The right ventricular systolic pressure, as measured by Doppler, is 39.25mmHg. The pulmonic valve was not well visualized. The aortic root size is normal. Normal inferior vena cava with normal inspiratory collapse consistent with estimated right atrial pre ssure of 5 mmHg. There is no pericardial effusion. CONCLUSIONS -------- 1. Sinus rhythm. 2. This was a technically difficult study with suboptimal views. 3. The left ventricular size is normal. 4. There is moderate concentric left ventricular hypertrophy. 5. Overall left ventricular systolic function is normal with, an EF between 65 - 70 %. 6. The right ventricle is mildly enlarged. 7. LA is moderately dilated 34-39 ml/m2 8. The right atrium is normal in size. 9. 3 ml of Lumason was utilized for enhancement of images. 10. Peak/mean gradient across the Aortic Valve is 15.36mmHg / 7.45mmHg. 11. Normally functioning bioprosthetic valve. 12. The mitral valve leaflets are mildly thickened. 13. Mild mitral annular calcification present. 14. Mild mitral regurgitation is present. 15. The peak and mean MV gradients are 15.83mmHg 6.15mmHg as measured by doppler. 16. Moderate mitral stenosis. 17. Mild tricuspid regurgitation present. 18. There is mild pulmonary hypertension. 19. The right ventricular systolic pressure, as measured by Doppler, is 39.25mmHg. 20. The pulmonic valve was not well visualized. 21. The aortic root size is normal. 22. Normal inferior vena cava with normal inspiratory collapse consistent with estimated right atrial pressure of 5 mmHg. 23. There is no pericardial effusion. ENGINE PILOT: Uzma Delgado RDCS
[2018-08-28 11:50] LABS: Glucose,Whole Blood 149 mg/dL (75-99)
[2018-08-28] MEDS ORDERED: IV FLUID CONTINUATION 1,000 ML IV ONE (12:00)
[2018-08-28] MEDS ORDERED: LIDOCAINE 1% INJ 10MG/ML (20 ML MDV) ONE (12:00)
[2018-08-28] MEDS ORDERED: PROPOFOL 10 MG/ML 20 ML VIAL IV ONE (12:00)
[2018-08-28 12:26] LABS: Anisocytosis Slight; Basophils % (A) 0 %; Eosinophils # (A) 0.2 k/uL (0-0.7); Eosinophils % (A) 5 %; HCT 22.7 % (39.0-53.0); HGB 7.2 gm/dL (13.0-17.5); Hypochromasia Slight; Lymphocytes # (A) 0.7 k/uL (1.0-4.8); Lymphocytes % (A) 14 %; MCH 29.3 pg (25.0-35.0); MCHC 31.7 g/dL (31.0-37.0); MCV 92.3 fL (80.0-100.0); Macrocytosis Slight; Mean Platelet Volume 8.5; Monocytes # (A) 0.4 k/uL (0-1.0); Monocytes % (A) 7 %; Neutrophils # (A) 3.7 k/uL (1.3-7.7); Neutrophils % (A) 73 %; Platelet Count 126 k/uL (150-450); RBC 2.46 m/uL (4.30-5.90); RDW 18.7 % (11.5-15.5); WBC 5.1 k/uL (3.8-10.6)
--- NOTE | 2018-08-28 12:29 | P.PCN ---
Date of Procedure: 08/28/18 Description of Procedure: BRIEF HISTORY: 77-year-old male with a medical history significant for hypertension, hyperlipidemia, carotid 2 diabetes mellitus and coronary artery disease status post CABG who presented for outpatient evaluation of abnormal labs. The patient was seen in the outpatient setting where he was found to have a hemoglobin of 5.8 and was sent to the hospital for further evaluation. The patient had associated symptoms of dizziness, weakness and shortness of breath which was worse with exertion. He is on Plavix and aspirin at baseline. No signs or symptoms of GI bleeding reported with stool testing for occult blood positive. The patient has undergone extensive endoscopic evaluation in the past with EGD and colonoscopy in 07/2017 at which time the patient had removal of multiple colonic polyps as well as the finding of a large rectal polyp which was subsequently treated with flexible sigmoidoscopy and resection and 08/31 and 11/2017. PROCEDURE PERFORMED: Esophagogastroduodenoscopy with biopsy. PREOPERATIVE DIAGNOSIS: Anemia of acute blood loss, stool positive for occult blood. ESTIMATED BLOOD LOSS: Minimal. IV sedation per anesthesia. PROCEDURE: After informed consent was obtained, the patient was brought into the endoscopy unit. IV sedation was administered by Anesthesia under continuous monitoring. Initially the Olympus GIF-190 video endoscope was inserted into the mouth. Esophagus intubated without any difficulty. It was gradually advanced into the stomach and duodenum and carefully examined. The diffuse erythema and edema of the duodenal bulb suggestive of moderate duodenitis which was biopsied. Second portion of the duodenum appeared normal. The scope at this time was withdrawn to the stomach, adequately insufflated with air, and upon careful examination, mucosa of the antrum, body, cardia and the fundus appeared grossly normal with some mild scattered erythema in the antrum and body suggestive of gastritis which was biopsied. Small hiatal hernia was noted. The scope was then withdrawn into the esophagus. The GE junction was located at 39 cm from the incisors. The esophagus appeared normal. There were no erosions or ulcerations seen and the patient tolerated the procedure well. IMPRESSION: 1. Moderate duodenitis of the bulb, biopsied. 2. Mild gastritis of the antrum and body, biopsied. 3. Small hiatal hernia. 4. No active bleeding or old blood noted. RECOMMENDATIONS: The findings of this examination were discussed with the patient in the nursing staff. Okay to resume diet. Continue to monitor hemoglobin and hematocrit. Continue PPI therapy. The patient has further fall in hemoglobin consideration for colonoscopy although as mentioned in the brief history the patient has had extensive colonoscopic evaluation within the past year, or video capsule endoscopy for evaluation of small bowel bleed.
[2018-08-28 15:57] LABS: INR 0.9 (<1.2); Prothrombin Time 10.1 sec (9.0-12.0)
[2018-08-28 16:41] VITALS: BP 165/67; PULSE 80; TEMP 98.8
[2018-08-28 16:42] VITALS: RESP 18
--- NOTE | 2018-08-28 16:49 | P.CONS ---
History of Present Illness - Reason for Consult Consult date: 08/28/18 Cytopenias Requesting physician: Carmen Cramer - Chief Complaint Dizziness, SOB - History of Present Illness 77-year-old male who presented for outpatient labwork and follow-up and was sent to Emergency for further evaluation of sugnificant abnormalities. On presentation Hemoglobin 5.8. He has known History of recent CABG, as well as, HTN, CAD, HLD, DM2. On admission he did have dizziness, weakness and shortness of breath worse with exertion. He is on Plavix and aspirin at baseline. The patient does report dark bowel movements and denies any gross red blood per rectum. On presentation to the hospital the patient was found to have a stool positive for occult blood. He's undergone extensive endoscopic evaluation in the past with EGD and colonoscopy in 07/2017 at which time multiple polyps were removed and the patient was found to have a large rectal polyp. Per GI he subsequently treated with resection on follow-up flexible sigmoidoscopy in 08/2017 and 2017. Looking over his past medical history he has had a history of acute renal insufficiency, with possible Chronic Kidneey disease. His trended creatinines averaged 1.7-2.8, today 1.63. Dr. Watson has seen patient in past and he admits to seeing a mail handler assistant several years ago as well. He also has a long chronic history of mild thrombocytopenia. His platelet count on admission 130. With the acute, significant drop in hemoglobin he was admitted and received two units of PRBC, he underwent colonoscopy today, no sign of acute bleeding. Because of his significant anemia and chronic mild thrombocytopenia hematology has been consulted. He has never seen a senior scientist in past that he recalls. He used to smoke, greater than 3 years ago, and occassional/social alcohol use. Review of Systems A full review of systems was assessed and completed and all negative except HPI Past Medical History Past Medical History: Cancer, Diabetes Mellitus, Hearing Disorder / Deafness, Hyperlipidemia, Hypertension, Myocardial Infarction (ID), Prostate Disorder, Renal Disease, Vascular Disorder Additional Past Medical History / Comment(s): gout, NEUROPATHY, constipation, chronic kidney disease, AORTIC VALVE WAS REPLACED, PROSTATE CANCER-radiation only no chemo. 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 cataract surgery-porfirio, AORTIC RESECTION FOR ANEURYSM. aortogram . FLEXIBLE SIGMOIDOSCOPY 08/2017 Past Anesthesia/Blood Transfusion Reactions: No Reported Reaction Past Psychological History: Depression Smoking Status: Former smoker Past Alcohol Use History: Rare Additional Past Alcohol Use History / Comment(s): QUIT SMOKING IN 2008, SMOKED 1PPD FROM 1957 Past Drug Use History: None Reported - Past Family History Mother Family Medical History: Cancer Additional Family Medical History / Comment(s): cancer- unknow type. Denies family hx of colon caner Father Additional Family Medical History / Comment(s): alzheimers Sister(s) Family Medical History: Cancer Medications and Allergies Home Medications Medication Instructions Recorded Confirmed Type Aspirin EC [Ecotrin Low Dose] 81 mg PO HS 07/28/15 08/27/18 History Atorvastatin [Lipitor] 40 mg PO HS 07/28/15 08/27/18 History glipiZIDE [Glucotrol] 5 mg PO AC-BRKFST 07/28/15 08/27/18 History Allopurinol [Zyloprim] 100 mg PO DAILY 11/13/15 08/27/18 History amLODIPine [Norvasc] 2.5 mg PO DAILY 01/08/16 08/27/18 History Clopidogrel [Plavix] 75 mg PO DAILY #90 tab 01/11/16 08/27/18 Rx Acetaminophen Tab [Tylenol Tab] 325 mg PO Q6H PRN 08/27/18 08/27/18 History Bicalutamide 50 mg PO DAILY 08/27/18 08/27/18 History Sodium Bicarbonate Tab 1,300 tab PO BID 08/27/18 08/27/18 History glyBURIDE [Diabeta] 2.5 mg PO QID PRN 08/27/18 08/27/18 History metFORMIN HCL ER [Glucophage Xr] 500 mg PO DAILY 08/27/18 08/27/18 History sitaGLIPtin [Januvia] 50 mg PO DAILY 08/27/18 08/27/18 History Allergies Allergy/AdvReac Type Severity Reaction Status Date / Time codeine Allergy Rash/Hives Verified 08/27/18 09:43 Physical Exam Vitals: Vital Signs Temp Pulse Resp BP Pulse Ox 08/28/18 11:01 98.1 F 66 16 138/76 95 08/28/18 08:42 75 17 08/28/18 08:37 97.6 F 75 17 146/66 97 08/28/18 03:53 97.9 F 75 18 136/70 94 L 08/27/18 23:41 69 18 144/66 92 L 08/27/18 20:00 16 08/27/18 19:42 98.3 F 65 16 116/54 91 L 08/27/18 16:57 62 08/27/18 16:00 97.3 F L 62 16 96/40 93 L Intake and Output 08/27/18 08/28/18 08/28/18 22:59 06:59 14:59 Intake Total 100 Output Total 800 400 Balance -800 -300 Intake: IV 100 Output: Urine 800 400 Other: Voiding Method Toilet Toilet Toilet Urinal Urinal Urinal # Voids 1 1 Weight 93.3 kg Gen: NAD, Alert and oriented Neck Supple, Trachea Midline Head: NC, NT Lungs: CTA Bilateral Heart: RRR, S1s2 Abdomen: S/ND/NT Ext: No edema. Results CBC & Chem 7: 08/28/18 11:45 08/28/18 05:43 Labs: Abnormal Lab Results - Last 24 Hours (Table) 08/27/18 08/27/18 08/27/18 Range/Units 09:13 09:13 15:30 RBC 2.53 L (4.30-5.90) m/uL Hgb 7.6 L (13.0-17.5) gm/dL Hct 23.5 L (39.0-53.0) % RDW 18.8 H (11.5-15.5) % Plt Count 132 L (150-450) k/uL Lymphocytes # (1.0-4.8) k/uL Chloride (98-107) mmol/L BUN (9-20) mg/dL Creatinine (0.66-1.25) mg/dL Glucose (74-99) mg/dL POC Glucose (mg/dL) (75-99) mg/dL Hemoglobin A1c 6.4 H (4.0-6.0) % Iron 55 L (65-175) ug/dL 08/27/18 08/27/18 08/28/18 Range/Units 16:59 20:13 00:53 RBC 2.67 L (4.30-5.90) m/uL Hgb 8.3 L (13.0-17.5) gm/dL Hct 24.6 L (39.0-53.0) % RDW 19.2 H (11.5-15.5) % Plt Count 138 L (150-450) k/uL Lymphocytes # (1.0-4.8) k/uL Chloride (98-107) mmol/L BUN (9-20) mg/dL Creatinine (0.66-1.25) mg/dL Glucose (74-99) mg/dL POC Glucose (mg/dL) 172 H 169 H (75-99) mg/dL Hemoglobin A1c (4.0-6.0) % Iron (65-175) ug/dL 08/28/18 08/28/18 08/28/18 Range/Units 05:43 05:43 06:04 RBC 2.42 L (4.30-5.90) m/uL Hgb 7.4 L (13.0-17.5) gm/dL Hct 22.4 L (39.0-53.0) % RDW 19.5 H (11.5-15.5) % Plt Count 130 L (150-450) k/uL Lymphocytes # 0.7 L (1.0-4.8) k/uL Chloride 112 H (98-107) mmol/L BUN 36 H (9-20) mg/dL Creatinine 1.63 H (0.66-1.25) mg/dL Glucose 148 H (74-99) mg/dL POC Glucose (mg/dL) 150 H (75-99) mg/dL Hemoglobin A1c (4.0-6.0) % Iron (65-175) ug/dL 08/28/18 08/28/18 Range/Units 11:40 11:45 RBC 2.46 L (4.30-5.90) m/uL Hgb 7.2 L (13.0-17.5) gm/dL Hct 22.7 L (39.0-53.0) % RDW 18.7 H (11.5-15.5) % Plt Count 126 L (150-450) k/uL Lymphocytes # 0.7 L (1.0-4.8) k/uL Chloride (98-107) mmol/L BUN (9-20) mg/dL Creatinine (0.66-1.25) mg/dL Glucose (74-99) mg/dL POC Glucose (mg/dL) 149 H (75-99) mg/dL Hemoglobin A1c (4.0-6.0) % Iron (65-175) ug/dL Comments: Colonoscopy: Reviewed. Assessment and Plan Plan: Assessment and recommendations: 1. Normocytic Anemia secondary to acute Gi Blood loss. - Probable contributing factor related to chronic kidney disease in which nephrology is following - Review endoscopy, supportive transfusions under 7, daily CBC - Also trending his hemoglobin back to 2016 he has had a chronic anemia picture 2. Mild Thrombocytopenia: - History of chronic mild thrombocytopenia - Benign in nature and at this time maybe related to acute blood loss iron deficient anemia. - Further assessment of spleen and imaging if persists or worsens is resonable. Would await Renal function to improve - Will further assess with Erythropoetin, MMA, SPEP, LDH, FLC Continue Daily CBC and supportive transfusions Chronic disease with Diabetes, CKD, CAD, Give one dose of IV Parental Iron and follow-up in office for 2-5 more infusions. Will set up to be seen in office within 2-[address] Navarro spoke with Dr. Calvert from Cardiology and will hold Plavix. continuing ASA 81. Maybe a chronic underlying bone marrow issue but if continued cytopenias will follow-up as outpatient. Physician Attest: I have completed the full history and physical and developed the complete impression and plan. and agree with above dictation by Mary Ellen Camejo Dictated as a scribe
[2018-08-28] MEDS ORDERED: SODIUM FERRIC GLUCONAT-SUCROSE 125 MG in SODIUM CHLORIDE 0.9% 100 ML IVPB ONE (17:00)
[2018-08-28 17:14] LABS: Glucose,Whole Blood 158 mg/dL (75-99)
[2018-08-28] MEDS ORDERED: PANTOPRAZOLE 40 MG TABLET PO SCH (17:30)
--- NOTE | 2018-08-28 17:48 | P.DS ---
Providers Date of admission: 08/27/18 03:26 Expected date of discharge: 08/28/18 Attending physician: Elvie Avina MD Consults: 08/27/18 03:26 Consult Physician Stat Consulting Provider: Lori Hartmann Consult Reason/Comments: Anemia, melena Do you want consulting provider notified?: Yes, Notify in am 08/27/18 20:13 Consult Physician Routine Consulting Provider: Leo Navarro Consult Reason/Comments: anemia, thrombocytopenia Do you want consulting provider notified?: Yes, Notify in am Primary care physician: Norm Stock Hospital Course: Discharge Diagnosis: Symptomatic hypoproliferative anemia due to iron deficiency Duodenitis Thrombocytopenia Chronic kidney disease stage III Coronary artery disease Diabetes mellitus type 2-A1c 6.4 Hypertension Dyslipidemia Hospital Course: Patient is a 77-year-old male past medical history of hypertension, dyslipidemia, diabetes mellitus type 2, and atherosclerotic sclerotic coronary artery disease status post CABG with AVR replacement who presented at the direction of Dr. Stock for low hemoglobin. Patient had initially seen Dr. Stock in the office on 08/26 and underwent blood work. He was called in the middle the night stating that he was anemic and told to come to the ER. On presentation to the ER here he underwent an extensive evaluation. His hemoglobin was found to be 5.8. His creatinine was slightly elevated but at his baseline. Vital signs were within normal limits. He was ordered 2 units of packed red blood cells and admitted to the general medical floor. He had a positive stool occult blood but takes oral iron at home. His hemoglobin cesario appropriately to 7.2. He was seen by GI and underwent upper endoscopy on 08/28 which showed clot tinnitus but no active or prior signs of bleeding. He was found to have low ferritin 84 despite oral iron therapy. His reticulocyte index was low at 0.8 9.0 high proliferative anemia. LDH was within normal and haptoglobin was pending. Echocardiogram showed normally functioning bioprosthetic aortic valve. Hematology was therefore consulted secondary to his symptomatic anemia. They recommended 1 IV iron infusion prior to discharge and then follow up in the clinic in 3-4 weeks for repeat blood work and continued IV iron. Dr. Navarro spoke with Dr. Calvert who stated patient to come off of Plavix that should be maintained on aspirin. Patient was feeling back to his normal self was determined stable for discharge home. He will continue on Protonix for his duodenitis. He will follow-up with Dr. Parkinson of gastroenterology on 09/18. Patient seen and examined at bedside.No chest pain, weakness and shortness of breath improved. Feeling much better. Family at bedside. All questions answered. Vital signs reviewed and stable. General: non toxic, no distress, appears at stated age Derm: warm, dry Head: atraumatic, normocephalic, symmetric Eyes: EOMI, no lid lag, anicteric sclera Mouth: no lip lesion, mucus membranes moist Cardiovascular: S1S2 reg, + systolic murmur, positive posterior tibial pulse right, Lungs: CTA bilateral, no rhonchi, no rales , no accessory muscle use Abdominal: soft, nontender to palpation, no guarding, no appreciable organomegaly Ext: no gross muscle atrophy, no edema left lower extremity, no contractures Neuro: CN II-XI grossly intact, no focal neuro deficits Psych: Alert, oriented, appropriate affect A total of 35 minutes of time were spent preparing this complex discharge summary . Pertinent Studies: Echo-normally functioning bioprosthetic aortic valve, preserved ejection fraction Procedures: EGD 08/28-duodenitis Patient Condition at Discharge: Fair Plan - Discharge Summary Discharge Rx Participant: No New Discharge Prescriptions: New Pantoprazole [Protonix] 40 mg PO AC-BID #60 tablet.[address] Godoy Atorvastatin [Lipitor] 40 mg PO HS glipiZIDE [Glucotrol] 5 mg PO AC-BRKFST Aspirin EC [Ecotrin Low Dose] 81 mg PO HS Allopurinol [Zyloprim] 100 mg PO DAILY amLODIPine [Norvasc] 2.5 mg PO DAILY Acetaminophen Tab [Tylenol] 325 mg PO Q6H PRN PRN Reason: Pain metFORMIN HCL ER [Glucophage Xr] 500 mg PO DAILY Sodium Bicarbonate Tab 1,300 tab PO BID sitaGLIPtin [Januvia] 50 mg PO DAILY Bicalutamide 50 mg PO DAILY Discontinued Clopidogrel [Plavix] 75 mg PO DAILY #90 tab glyBURIDE [Diabeta] 2.5 mg PO QID PRN PRN Reason: Blood Sugar - High Discharge Medication List Aspirin EC [Ecotrin Low Dose] 81 mg PO HS 07/28/15 [History] Atorvastatin [Lipitor] 40 mg PO HS 07/28/15 [History] glipiZIDE [Glucotrol] 5 mg PO AC-BRKFST 07/28/15 [History] Allopurinol [Zyloprim] 100 mg PO DAILY 11/13/15 [History] amLODIPine [Norvasc] 2.5 mg PO DAILY 01/08/16 [History] Acetaminophen Tab [Tylenol] 325 mg PO Q6H PRN 08/27/18 [History] Bicalutamide 50 mg PO DAILY 08/27/18 [History] Sodium Bicarbonate Tab 1,300 tab PO BID 08/27/18 [History] metFORMIN HCL ER [Glucophage Xr] 500 mg PO DAILY 08/27/18 [History] sitaGLIPtin [Januvia] 50 mg PO DAILY 08/27/18 [History] Pantoprazole [Protonix] 40 mg PO AC-BID #60 tablet. 08/28/18 [Rx] Follow up Appointment(s)/Referral(s): Leo Navarro MD [STAFF PHYSICIAN] - 3 Weeks (Call office [phone] to set up f/u in 3-4 weeks. In addition, Patient will call on friday to set up an appointment to recieve an iron infusion within a week after discharge. ) Norm Stock MD [Primary Care Provider] - 09/02/18 10:30 am Bob Parkinson MD [STAFF PHYSICIAN] - 09/18/18 10:00 am (Please switch appointment to be with Dr. Hartmann in 2 weeks. ) Patient Instructions/Handouts: Iron Rich Diet (DC), Anemia (DC), Upper Endoscopy (DC) Activity/Diet/Wound Care/Special Instructions: carb consistent diet activity as tolerated Discharge Disposition: HOME SELF-CARE
[2018-08-29 00:47] LABS: Protein, Total 5.9 g/dL (6.2-8.2)
[2018-08-29 10:49] LABS: Immunoglobulin M <16.9 mg/dL (40.0-280.0)
[2018-08-31 12:50] LABS: Albumin 3.55 g/dL (3.80-4.90); Gamma Globulin 0.58 g/dL (0.70-1.50)
== END 2018-08-28 19:00 | disposition home or self-care (01) | DRG 812 ==
LOC: EC 02:02 → 3SCARD 03:26
PROVIDERS: ADMIT Internal Medicine; ATTEND Internal Medicine
PROC: 30283B1 Transfusion of Nonautologous 4-Factor Prothrombin Complex Concentrate into Vein, Percutaneous Approach (ICD-10-PCS; 2018-08-27)
PROC: 0DB78ZX Excision of Stomach, Pylorus, Via Natural or Artificial Opening Endoscopic, Diagnostic (ICD-10-PCS; 2018-08-28)
PROC: 0DB98ZX Excision of Duodenum, Via Natural or Artificial Opening Endoscopic, Diagnostic (ICD-10-PCS; principal; 2018-08-28 07:30)
DX: D50.0 Iron deficiency anemia secondary to blood loss (chronic) (principal); D63.1 Anemia in chronic kidney disease; D69.6 Thrombocytopenia, unspecified; E11.22 Type 2 diabetes mellitus with diabetic chronic kidney disease; E78.5 Hyperlipidemia, unspecified; F32.9 Major depressive disorder, single episode, unspecified; H91.90 Unspecified hearing loss, unspecified ear; I12.9 Hypertensive chronic kidney disease with stage 1 through stage 4 chronic kidney disease, or unspecified chronic kidney disease; N18.3 Chronic kidney disease, stage 3 (moderate); I25.10 Atherosclerotic heart disease of native coronary artery without angina pectoris; I25.2 Old myocardial infarction; K29.70 Gastritis, unspecified, without bleeding; K29.80 Duodenitis without bleeding; K44.9 Diaphragmatic hernia without obstruction or gangrene; Z86.010 Personal history of colon polyps; Z79.02 Long term (current) use of antithrombotics/antiplatelets; Z79.82 Long term (current) use of aspirin; Z79.84 Long term (current) use of oral hypoglycemic drugs; Z79.899 Other long term (current) drug therapy; Z82.0 Family history of epilepsy and other diseases of the nervous system; Z85.46 Personal history of malignant neoplasm of prostate; Z87.891 Personal history of nicotine dependence; Z89.511 Acquired absence of right leg below knee; Z95.1 Presence of aortocoronary bypass graft; Z95.2 Presence of prosthetic heart valve; Z92.3 Personal history of irradiation; Z88.5 Allergy status to narcotic agent; Z80.9 Family history of malignant neoplasm, unspecified
CPT/HCPCS: 36415; 43239; 80048; 80053; 81001; 82247; 82272; 82668; 82728; 82784; 83010; 83036; 83540; 83550; 83615; 83690; 83883; 83921; 84165; 85025; 85045; 85610; 85730; 86850; 86900; 86901; 86920; 88305; 93306; 96361; 96374; 99284

== ENCOUNTER → 2019-06-18 | Outpatient (CLI) | payer MEDICARE, BC ==
--- NOTE | 2019-07-13 10:54 | P.ARTDOP ---
Arterial Doppler LOWER EXTREMITY ARTERIAL DOPPLER: DATE OF SERVICE: 06/18/2019 Reason for study: Status post right leg amputation. Possible claudication lef t.. Doppler waveforms: Status post right leg amputation. Multiphasic throughout on the left. Digital waveforms flat line.. Pulse volume recording: Digital waveforms essentially flat line. Pressure gradients: Only at the digital level on the left. Ankle-brachial indices: Not recorded on the right. Greater than 1 on the left. Dorsalis pedis can't be occluded.. Toe pressures: [] on the right, [] on the left Impression: Possible distal disease on the left. Proximal flow appears to be adequate. Clinical correlation recommended..
== END | disposition home or self-care (01) ==
LOC: RADUSWWP 12:52
PROVIDERS: ATTEND Family Medicine
DX: I70.212 Atherosclerosis of native arteries of extremities with intermittent claudication, left leg (principal)
CPT/HCPCS: 93922

== ENCOUNTER → 2021-02-02 | Outpatient (CLI) | payer MEDICARE, BC ==
--- NOTE | 2021-02-02 07:59 | US ---
EXAMINATION TYPE: US abdomen limited DATE OF EXAM: 02/02/2021 COMPARISON: 07/29/2015 CLINICAL HISTORY: R17 JAUNDICE. Jaundice exam limitations due to bowel gas and body habitus. EXAM MEASUREMENTS: Liver Length: 14.8 cm Gallbladder Wall: .2 cm CBD: .4 cm Right Kidney: 10.5 x 3.8 x 4.0 cm Pancreas: Obscured by bowel gas Liver: Increased attenuation Gallbladder: No stones seen Evidence for sonographic Saenz's sign: No CBD: wnl Right Kidney: Cortical thinning IMPRESSION: Right renal cortical thinning suggests probable chronic medical renal disease.
== END | disposition home or self-care (01) ==
LOC: RADUSWWP 06:56
PROVIDERS: ATTEND Family Medicine
DX: R17 Unspecified jaundice (principal)
CPT/HCPCS: 76705

== ENCOUNTER → 2021-07-26 | Outpatient (CLI) | payer MEDICARE, BC ==
--- NOTE | 2021-07-26 16:07 | US ---
EXAMINATION TYPE: US carotid duplex BILAT DATE OF EXAM: 07/26/2021 COMPARISON: NONE CLINICAL HISTORY: R09.89 SYMPTOMS SIGNS INVOLVING CIRCULATORY RESPIRATORY SYSTEM. HTN, DM, Prior Smok er EXAM MEASUREMENTS: RIGHT: Peak Systolic Velocity (PSV) cm/sec ----- Right CCA: 131.7 ----- Right ICA: 121.4 ----- Right ECA: 289.7 ICA/CCA ratio: 0.9 RIGHT: End Diastole cm/sec ----- Right CCA: 24.1 ----- Right ICA: 32.7 ----- Right ECA: 31.0 LEFT: Peak Systolic Velocity (PSV) cm/sec ----- Left CCA: 90.1 ----- Left ICA: 90.8 ----- Left ECA: 160.8 ICA/CCA ratio: 1.0 LEFT: End Diastole cm/sec ----- Left CCA: 21.5 ----- Left ICA: 27.0 ----- Left ECA: 18.9 VERTEBRALS (direction of flow): Right Vertebral: Antegrade Left Vertebral: Antegrade Rhythm: Normal Moderate to severe shadowing plaque bilateral carotid bulb level on grayscale images but velocity tila surements and ratios remain within normal limits in the internal carotid arteries bilaterally. IMPRESSION: Moderate to severe atherosclerotic changes bilaterally without hemodynamically significa nt stenosis seen in either internal carotid artery. Criteria for Assigning % of Stenosis / Diameter reduction (Estimation based on the indirect measurements of the internal carotid artery velocities (ICA PSV). 1. Normal (no stenosis)=ICA PSV < 125 cm/s: ratio < 2.0: ICA EDV<40 cm/s. 2. Less than 50% stenosis=ICA PSV < 125 cm/s: ratio < 2.0: ICA EDV<40 cm/s. 3. 50 to 69% stenosis=ICA PSV of 125 to 230 cm/s: ration 2.0 ? 4.0: ICA EDV 40-100 cm/s. 4. Greater than 70% stenosis to near occlusion= ICA PSV > 230 cm/s: ratio > 4.0: ICA EDV > 100 cm/s. 5. Near occlusion= ICA PSV velocities may be low or undetectable: variable ratio and ICA EDV. 6. Total occlusion=unable to detect flow.
== END | disposition home or self-care (01) ==
LOC: RADUSWWP 15:21
PROVIDERS: ATTEND Family Medicine
DX: I65.23 Occlusion and stenosis of bilateral carotid arteries (principal); I10 Essential (primary) hypertension; E11.9 Type 2 diabetes mellitus without complications; Z87.891 Personal history of nicotine dependence
CPT/HCPCS: 93880

== ENCOUNTER 2024-09-15 05:49 | Day surgery (SDC) | payer MEDICARE, BC ==
[~2024-09-15 05:49] MED LIST changes: +ALPRAZolam 0.25 MG TAB PO PRN; +ALPRAZolam 0.5 MG TAB PO PRN; -LACTATED RINGERS 1,000 ML IV SCH; -LIDOCAINE 1% 20 ML VIAL (10MG/ML) FOR IV START INTRADERMA PRN; -LIDOCAINE 1% INJ 10MG/ML (20 ML MDV) ONE; -MIDAZOLAM 2 MG/2 ML VIAL IV PRN; +NITROGLYCERIN SL TABS 0.4 MG TAB SUBLINGUAL PRN; -PROPOFOL 10 MG/ML 20 ML VIAL IV ONE
[2024-09-15 06:33] LABS: Glucose,Whole Blood 109 mg/dL (70-110)
[2024-09-15] MEDS: SODIUM CHLORIDE 0.9% 1,000 ML in EMPTY BAG 1 BAG IV SCH ×2 (06:36→10:37)
[2024-09-15] MEDS: IV FLUID CONTINUATION 1,000 ML IV ONE (06:37)
[2024-09-15 06:42] LABS: Basophils # (A) 0.1 k/uL (0-0.2); Basophils % (A) 1 %; Eosinophils # (A) 0.7 k/uL (0-0.7); Eosinophils % (A) 6 %; HGB 10.6 gm/dL (13.0-17.5); Hypochromasia Moderate; Lymphocytes # (A) 2.2 k/uL (1.0-4.8); Lymphocytes % (A) 20 %; MCH 27.2 pg (25.0-35.0); MCHC 30.2 g/dL (31.0-37.0); MCV 90.1 fL (80.0-100.0); Mean Platelet Volume 8.3; Monocytes # (A) 0.6 k/uL (0-1.0); Monocytes % (A) 5 %; Neutrophils # (A) 7.2 k/uL (1.3-7.7); Neutrophils % (A) 67 %; Platelet Count 177 k/uL (150-450); RBC 3.89 m/uL (4.30-5.90); RDW 15.2 % (11.5-15.5); WBC 10.8 k/uL (3.8-10.6)
[2024-09-15] MEDS: ASPIRIN 81 MG PO STA (06:44)
[2024-09-15] MEDS: ASPIRIN 325 MG TAB PO STA (06:48)
[2024-09-15 07:00] LABS: African American GFR (CKD) 43 (>60 ml/min/1.73 sqM); Anion Gap 10 mmol/L; Blood Urea Nitrogen 36 mg/dL (9-20); Calcium 9.8 mg/dL (8.4-10.2); Carbon Dioxide 29 mmol/L (22-30); Chloride 98 mmol/L (98-107); Glucose 103 mg/dL (74-99); Non-African American GFR(CKD) 37 (>60 ml/min/1.73 sqM); Potassium 4.6 mmol/L (3.5-5.1); Sodium 137 mmol/L (137-145)
[2024-09-15] MEDS: HEPARIN SODIUM,PORCINE 10,000 UNIT in SODIUM CHLORIDE 0.9% 1,000 ML IRRIGATION PRN (07:32)
[2024-09-15] MEDS: HEPARIN SODIUM,PORCINE (1 ML) 2,500 UNIT in SODIUM CHLORIDE 0.9% 250 ML IRRIGATION PRN (07:32)
[2024-09-15] MEDS: LIDOCAINE 1% INJ 10MG/ML (20 ML MDV) SQ ONE (07:50)
[2024-09-15] MEDS: TICAGRELOR 90 MG TAB PO ONE (07:52)
[2024-09-15] MEDS: MIDAZOLAM 2 MG/2 ML VIAL IVP ONE (07:52)
[2024-09-15] MEDS: VERAPAMIL SYRINGE (5 MG/10 ML) INTRAARTER ONE (07:52)
[2024-09-15] MEDS: HEPARIN SODIUM 1,000 UN/ML (10ML VL) IVP ONE (07:59)
[2024-09-15] MEDS: PHENYLEPHRINE-0.9% NACL SYG 1,000 MCG/10 ML SYRINGE IVP ONE (08:31)
[2024-09-15] MEDS: fentaNYL (PF) 50 MCG/ML 2 ML AMP IVP ONE (08:39)
[2024-09-15] MEDS: IOPAMIDOL-370 100ML BTL INJ ONE (08:39)
[2024-09-15] MEDS: NITROGLYCERIN 1000MCG/10ML SYRINGE INTRACORON ONE (08:40)
[2024-09-15] MEDS ORDERED: ATROPINE SULFATE 0.1 MG/ML 10ML SYRINGE IV PRN (08:52)
[2024-09-15] MEDS ORDERED: MAG HYDROX/AL HYDROX/SIMETH 30 ML CUP PO PRN (08:52)
[2024-09-15] MEDS ORDERED: RX INFO: IV CONTRAST WAS GIVEN 1 EACH MISC MISCELLANE PRN (08:52)
[2024-09-15] MEDS ORDERED: NITROGLYCERIN SL TABS 0.4 MG TAB SUBLINGUAL PRN (08:52)
[2024-09-15] MEDS ORDERED: ZOLPIDEM 5 MG TAB PO PRN (08:52)
[2024-09-15] MEDS ORDERED: NON FORMULARY DRUG (Cinnamon Bark [Cinnamon] 500 MG Capsule) PO SCH (09:00)
[2024-09-15] MEDS ORDERED: FISH OIL PO SCH (09:00)
[2024-09-15] MEDS ORDERED: CRANBERRY PO SCH (09:00)
--- NOTE | 2024-09-15 09:06 | P.PCN ---
Date of Procedure: 09/15/24 Operative Findings: PERCUTANEOUS CORONARY INTERVENTION Performing physician Sunny Calvert M.D. Procedure Performed: 1. Successful stenting of the left main and LAD using 4.0 x 28 mm Xience drug- eluting stent with an excellent angiographic results. 2. Adjunctive use of IVUS and lithotripsy balloon 3. Ultrasound-guided access of the right radial artery Indication: Symptomatic 83-year-old patient who was diagnosed recently with severe disease involving the left main coronary artery and LAD. He did have a previous history of open heart surgery with aortic valve replacement and SVG to RCA. The patient is not a candidate for surgical revascularization and he did not want to pursue any surgical evaluation as a matter of Approach: Right radial art Complications: None Level of Sedation: Moderate with a sedation length of 64 minutes Procedure Discussion: After obtaining informed consent the patient was brought to the cardiac [employer]. The right radial artery was cannulated using micropuncture technique under ultrasound guidance the micropuncture wire passed easily then I placed a 6 Frenc h 11 cm sheath at the right radial artery. After that I gave the patient 2 mg of verapamil intra-arterial and initially 5000's of heparin intravenous with continuous ACT monitoring. Subsequently I did engage the left main using JL 3.5 guiding catheter. I did wire the diagonal branch using a run-through wire in the LAD using a whisper wire. IVUS was performed and showed a diameter around 4 mm. The artery was extremely calcified. I did PTCA ballooning of the diagonal branch using 2.5 mm balloon before I did PTCA ballooning of the distal left main and proximal LAD using initially 3 mm and subsequently 3.5 mm lithotripsy balloon. After that I was able to advance a 4.0 x 28 mm stent to the proximal LAD and left main coronary artery all the way to the ostium. I did position the stent under fluoroscopy guidance and the stent was deployed under fluoroscopy guidance. Postdilatation of the stent was performed using 4 mm noncompliant balloon. IVUS was performed and showed that the stent was well opposed and well-expanded. The procedure was completed with no complication Postprocedure Management: 1. Dual antiplatelet therapy using aspirin and Brilinta for at least 6 to 12- month 2. Aggressive cholesterol control 3. Risk factors modification
[2024-09-15] MEDS: DAPAGLIFLOZIN PROPANEDIOL 5 MG TABLET PO SCH (12:28)
[2024-09-15] MEDS: FERROUS SULFATE 325 MG TAB PO SCH (12:28)
[2024-09-15] MEDS: MAGNESIUM OXIDE 400 MG TAB PO SCH (12:29)
[2024-09-15 19:28] LABS: Glucose,Whole Blood 216 mg/dL (70-110)
[2024-09-15] MEDS: ATORVASTATIN 40 MG TAB PO SCH (20:15)
[2024-09-15] MEDS: METOPROLOL TARTRATE 25 MG TAB PO SCH (20:15)
[2024-09-15] MEDS: GABAPENTIN 300 MG CAP PO SCH (20:15)
[2024-09-15] MEDS: TICAGRELOR 90 MG TAB PO SCH (20:39)
[2024-09-16 06:08] LABS: Glucose,Whole Blood 133 mg/dL (70-110)
[2024-09-16 07:15] LABS: African American GFR (CKD) 46 (>60 ml/min/1.73 sqM); Non-African American GFR(CKD) 40 (>60 ml/min/1.73 sqM)
[2024-09-16 07:24] VITALS: BP 174/73; PULSE 60; RESP 16; TEMP 97.5
[2024-09-16] MEDS: allopurinoL 100 MG TAB PO SCH (08:42)
[2024-09-16] MEDS ORDERED: ASPIRIN 81 MG PO SCH (21:00)
== END 2024-09-16 10:07 | disposition home or self-care (01) ==
LOC: CATHCVL 05:49 → 6NMEDSUR 08:45 → CATHCVL 09-16 10:07
PROVIDERS: ATTEND Internal Medicine Interventional Cardiology
DX: I25.10 Atherosclerotic heart disease of native coronary artery without angina pectoris (principal); I10 Essential (primary) hypertension; E78.5 Hyperlipidemia, unspecified; I44.7 Left bundle-branch block, unspecified; I73.9 Peripheral vascular disease, unspecified; Z95.2 Presence of prosthetic heart valve; Z85.46 Personal history of malignant neoplasm of prostate; Z89.511 Acquired absence of right leg below knee; Z87.448 Personal history of other diseases of urinary system; Z88.5 Allergy status to narcotic agent; Z79.02 Long term (current) use of antithrombotics/antiplatelets; Z79.899 Other long term (current) drug therapy
CPT/HCPCS: 93005; 92978; 92972; 92921; 80048; 82565; 85025; 99152; 99153; C9600; J2250; J1644 ×3; J2003; J3010; Q9967; J2371; J2305